=== PATIENT | female | born 1970 | race Caucasian/White ===

== ENCOUNTER 2018-12-25 07:02 | Day surgery (SDC) | payer BC ==
[2018-12-25] MEDS ORDERED: FENTAnyl 50 MCG/ML VIAL (09:29)
[2018-12-25] MEDS ORDERED: MIDAZOLAM 1 MG/ML 2 ML INJ ×2 (09:29)
== END 2018-12-25 13:40 | disposition home or self-care (01) ==
LOC: GIL 07:02
DX: Z12.11 Encounter for screening for malignant neoplasm of colon (principal); K29.30 Chronic superficial gastritis without bleeding; K57.30 Diverticulosis of large intestine without perforation or abscess without bleeding; K64.8 Other hemorrhoids; K21.0 Gastro-esophageal reflux disease with esophagitis
CPT/HCPCS: 43239; 84703; 88305; 88312